=== PATIENT | female | born 1990 | race Caucasian/White ===

== ENCOUNTER 2021-11-18 08:37 | Day surgery (SDC) | payer BC ==
[~2021-11-18] VITALS: Ht 165.1 cm; Wt 121.6 kg
[~2021-11-18 08:37] MED LIST: CYCL-707 PO; ELINTAB PO; ESOM40CA35 PO; EXCETAB33 PO; IBUP80TA PO; NS 1,000 ML IV ONE; ONDA-83 PO; PROP60TA18 PO
[2021-11-18] MEDS ORDERED: propofoL 200 MG/20 ML VIAL As Ordered ONE ×3 (09:32→09:37)
[2021-11-18] MEDS ORDERED: GLYCOPYRROLATE INJ 0.2 MG/ML 2 ML VIAL As Ordered ONE (09:32)
[2021-11-18] MEDS ORDERED: LIDOCAINE 2% 100MG/5ML SDV (FOR ANES.) As Ordered ONE (09:32)
[2021-11-18 10:20] VITALS: BP 161/105
== END 2021-11-18 10:39 | disposition home or self-care (01) ==
LOC: M OPP 08:37
PROVIDERS: ATTEND Internal Medicine Gastroenterology
DX: K62.1 Rectal polyp (principal); K57.30 Diverticulosis of large intestine without perforation or abscess without bleeding; K64.8 Other hemorrhoids; K59.00 Constipation, unspecified; K29.70 Gastritis, unspecified, without bleeding; R10.13 Epigastric pain; D50.9 Iron deficiency anemia, unspecified; Z79.899 Other long term (current) drug therapy; Z88.8 Allergy status to other drugs, medicaments and biological substances; F17.210 Nicotine dependence, cigarettes, uncomplicated